=== PATIENT | male | born 1965 | race Caucasian/White ===

== ENCOUNTER 2022-10-30 12:28 | Emergency (ER) | payer BC ==
[~2022-10-30] VITALS: Ht 193 cm; Wt 82.2 kg
[~2022-10-30 12:28] MED LIST: LISI5TAB11 PO
[2022-10-30] MEDS ORDERED: OMEP40CA4 PO (12:39)
[2022-10-30 15:16] LABS: BASO # 0.1 10^3/uL (0.0-0.2); BASO % 0.9 % (0.0-1.0); EOS # 0.2 10^3/uL (0.0-0.5); EOS % 2.3 % (0.0-3.0); HEMATOCRIT 48.2 % (42.0-52.0); HEMOGLOBIN 16.3 g/dl (13.5-17.5); LYMPH # 2.1 10^3/uL (1.5-5.0); LYMPH % 27.4 % (24.0-44.0); MEAN CORPUSCULAR HEMOGLOBIN 33.5 pg (27.0-33.0); MEAN CORPUSCULAR HGB CONC 33.8 g/dl (32.0-36.5); MONO # 0.5 10^3/uL (0.0-0.8); NEUTROPHILS # 4.8 10^3/uL (1.5-8.5); NEUTROPHILS % 62.1 % (36.0-66.0); PLATELET COUNT, AUTOMATED 271 10^3/uL (150-450); RED BLOOD COUNT 4.87 10^6/uL (4.30-6.10); WHITE BLOOD COUNT 7.7 10^3/uL (4.0-10.0)
[2022-10-30 15:35] LABS: CPK CREATINE PHOSPHOKINASE 193 U/L (46-171)
[2022-10-30 15:36] LABS: ALKALINE PHOSPHATASE 48 U/L (46-116); ALT/SGPT 21 U/L (7.0-40); AST/SGOT 21 U/L (<34); BILIRUBIN,DIRECT 0.3 MG/DL (<0.4); BILIRUBIN,TOTAL 0.9 MG/DL (0.3-1.2); BLOOD UREA NITROGEN 10 MG/DL (9-23); CALCIUM LEVEL 9.1 MG/DL (8.5-10.1); CARBON DIOXIDE LEVEL 28 MMOL/L (20-31); CHLORIDE LEVEL 103 MMOL/L (98-107); CK-MB VALUE MASS < 1.0 NG/ML (<3.6); CREATININE FOR GFR 0.86 MG/DL (0.70-1.30); GLOMERULAR FILTRATION RATE > 60.0 (>56); GLUCOSE, FASTING 90 MG/DL (60-100); MB/CK RELATIVE INDEX 0.51 (< OR =4); POTASSIUM SERUM 4.4 MMOL/L (3.5-5.1); SODIUM LEVEL 136 MMOL/L (136-145); TOTAL PROTEIN 7.1 G/DL (5.7-8.2)
[2022-10-30] MEDS ORDERED: NORCO, ANEXSIA 5/325MG TABLET (HYDROcodone/ACETAMINOPHEN) PO ONE (16:35)
[2022-10-30 17:14] LABS: CK-MB VALUE MASS < 1.0 NG/ML (<3.6)
[2022-10-30 17:19] LABS: CPK CREATINE PHOSPHOKINASE 189 U/L (46-171); MB/CK RELATIVE INDEX 0.52 (< OR =4)
[2022-10-30] MEDS ORDERED: HYDR-3713 PO (17:33)
[2022-10-30] MEDS ORDERED: PRED20TA PO (17:33)
[2022-10-30 17:44] VITALS: BP 176/82; TEMP 98.2; O2SAT 98
== END 2022-10-30 17:48 | disposition home or self-care (01) ==
LOC: M ED 12:28
DX: M25.551 Pain in right hip (principal); R03.0 Elevated blood-pressure reading, without diagnosis of hypertension; M54.50 Low back pain, unspecified; F17.200 Nicotine dependence, unspecified, uncomplicated; K21.9 Gastro-esophageal reflux disease without esophagitis; F10.10 Alcohol abuse, uncomplicated; Z86.73 Personal history of transient ischemic attack (TIA), and cerebral infarction without residual deficits; Z88.0 Allergy status to penicillin; Z88.6 Allergy status to analgesic agent; Z87.442 Personal history of urinary calculi; Z79.52 Long term (current) use of systemic steroids; Z79.899 Other long term (current) drug therapy

== ENCOUNTER → 2022-11-16 | Outpatient (CLI) | payer BC ==
[~2022-11-16] MED LIST changes: +HYDR-3713 PO; +OMEP40CA4 PO; +PRED20TA PO
== END ==
LOC: M SOG 13:39
PROVIDERS: ATTEND Physician Assistant
DX: M54.50 Low back pain, unspecified (principal)

== ENCOUNTER → 2022-11-18 | Outpatient (CLI) | payer BC | LOC: M RAD 09:06 | PROVIDERS: ATTEND Physician Assistant | DX: M51.27 Other intervertebral disc displacement, lumbosacral region (principal) ==

== ENCOUNTER 2023-02-08 13:51 | Emergency (ER) | payer BC ==
[~2023-02-08] VITALS: Ht 193 cm; Wt 83.0 kg
[2023-02-08] MEDS ORDERED: TIZA4CAP PO (13:59)
[2023-02-08] MEDS ORDERED: ACET325C5 PO (13:59)
[2023-02-08] MEDS ORDERED: GABA-282 PO (13:59)
[2023-02-08 17:08] VITALS: BP 137/74; TEMP 96.9; O2SAT 98
== END 2023-02-08 17:21 | disposition home or self-care (01) ==
LOC: M ED 13:51
DX: M71.22 Synovial cyst of popliteal space [Baker], left knee (principal); J44.9 Chronic obstructive pulmonary disease, unspecified; F10.10 Alcohol abuse, uncomplicated; F17.200 Nicotine dependence, unspecified, uncomplicated; Z86.73 Personal history of transient ischemic attack (TIA), and cerebral infarction without residual deficits; Z88.0 Allergy status to penicillin; Z88.6 Allergy status to analgesic agent; Z91.010 Allergy to peanuts; Z79.891 Long term (current) use of opiate analgesic; Z79.899 Other long term (current) drug therapy

== ENCOUNTER → 2024-09-02 | Outpatient (CLI) | payer BC ==
[~2024-09-02] MED LIST changes: +ACET325C5 PO; +GABA-1172 PO; +TIZA4CAP PO
== END ==
LOC: M RAD 11:45
PROVIDERS: ATTEND Internal Medicine Cardiovascular Disease
DX: I10 Essential (primary) hypertension (principal)